=== PATIENT | female | born 1945 | race Asian ===

== ENCOUNTER 2016-10-05 16:17 | Emergency (ER) | payer MEDICARE, OTHER ==
[2016-10-05 16:58] VITALS: BP 154/55
--- NOTE | 2016-10-05 17:49 | Emergency Department Report ---
ED Headache HPI - General Chief Complaint: Head Injury Stated Complaint: HEAD PAIN Time Seen by Provider: 10/05/16 17:48 Source: patient, family Exam Limitations: no limitations - History of Present Illness Initial Comments: Patient states she is having pain to the top of her head on the left side of started Thursday. She said it started when she was gardening and tried to pull up out of the ground and she jerked forward. Denies any head injury or loss of consciousness. Denies any chest pain, nausea vomiting, shortness of breath. Denies any fever or chills. Pain is 8 out of 10 and feels achy and comes and goes. She did not take any medication. Patient has a history of diabetes and hypertension. Pressure is 154/55. Timing/Duration: waxing and waning, other (4 days) Quality: moderate, achy Head Injury Location: parietal Recent Head Trauma: occasional headaches Associated Symptoms: denies: confusion, fatigue, facial pain, fever/chills, flushing, loss of consciousness, nausea/vomiting, nasal congestion, nasal drainage, numbness in legs/feet, rash, seizures, sinus infection, stiff neck, vision changes, weakness Allergies/Adverse Reactions: Allergies No Known Allergies Allergy (Unverified 10/05/16 16:58) Home Medications: Ambulatory Orders Cephalexin [Keflex] 500 mg PO Q8HR #30 cap 10/05/16 Ibuprofen [Motrin] 600 mg PO Q8H PRN #15 tablet 10/05/16 ED Review of Systems ROS: Stated complaint: HEAD PAIN Other details as noted in HPI Comment: All other systems reviewed and negative Constitutional: denies: chills, fever Eyes: denies: eye pain, vision change ENT: congestion. denies: ear pain, throat pain, hearing loss, epistaxis Respiratory: no symptoms reported Cardiovascular: denies: chest pain, palpitations, edema, syncope Gastrointestinal: denies: nausea, vomiting Musculoskeletal: denies: back pain, arthralgia Skin: denies: rash Neurological: headache. denies: weakness, numbness, paresthesias, confusion, abnormal gait ED Past Medical Hx - Past Medical History Previous Medical History?: Yes Hx Hypertension: Yes Hx Diabetes: Yes - Surgical History Past Surgical History?: No - Family History Family history: diabetes, hypertension - Social History Smoking Status: Former Smoker Substance Use Type: None - Medications Home Medications: Home Medications Medication Instructions Recorded Confirmed Last Taken Type Cephalexin [Keflex] 500 mg PO Q8HR #30 cap 10/05/16 Unknown Rx Ibuprofen [Motrin] 600 mg PO Q8H PRN #15 tablet 10/05/16 Unknown Rx ED Physical Exam - General Limitations: No Limitations General appearance: alert, in no apparent distress - Head Head exam: Present: atraumatic, normocephalic, normal inspection - Expanded Head Exam Expanded Head exam: Absent: laceration, abrasion, contusion, hematoma, racoon eyes, cali's sign, general tenderness, tenderness of temporal artery, CSF rhinorrhea , CSF otorrhea - Eye Eye exam: Present: normal appearance, PERRL, EOMI. Absent: nystagmus, periorbital swelling, periorbital tenderness Pupils: Present: normal accommodation - ENT ENT exam: Present: normal exam, normal orophraynx, mucous membranes moist, normal external ear exam, other (bilateral nasal mucosa congested without erythema. No frontal or maxillary sinus tenderness to palpate). Absent: TM's normal bilaterally ([place] TM congested without erythema) - Neck Neck exam: Present: normal inspection. Absent: tenderness, meningismus, full ROM, lymphadenopathy - Respiratory Respiratory exam: Present: normal lung sounds bilaterally. Absent: respiratory distress, chest wall tenderness - Cardiovascular Cardiovascular Exam: Present: regular rate, normal rhythm, normal heart sounds - GI/Abdominal GI/Abdominal exam: Present: soft, normal bowel sounds. Absent: distended, tenderness, guarding, rebound, rigid - Extremities Exam Extremities exam: Present: normal inspection, full ROM, normal capillary refill. Absent: tenderness, pedal edema, joint swelling, calf tenderness - Back Exam Back exam: Present: normal inspection, full ROM. Absent: tenderness, CVA tenderness (R), CVA tenderness (L), muscle spasm, paraspinal tenderness, vertebral tenderness, rash noted - Neurological Exam Neurological exam: Present: alert, oriented X3, normal gait, reflexes normal. Absent: motor sensory deficit - Expanded Neurological Exam Expanded Neurological exam: Absent: innattentive, memory loss-remote event, memory loss- recent event, ataxia, receptive aphasia, expressive aphasia, total aphasia, tremor, protecting the airway Patient oriented to: Present: person, place, time Speech: Present: fluid speech Cranial nerves: EOM's Intact: Normal, Gag Reflex: Normal, Nystagmus: Normal, Facial Sensation: Normal Cerebellar function: Romberg: Normal Upper motor neuron: Pronator Drift: Normal, Sensory Extinction: Normal Sensory exam: Upper Extremity Light Touch: Normal, Upper Extremity Temperature: Normal, UE 2 Point Discrimination: Normal, Lower Extremity Light Touch: Normal, Lower Extremity Temperature: Normal, LE 2 Point Discrimination: Normal Motor strength exam: RUE: 5, LUE: 5, RLE: 5, LLE: 5 DTR: bicep (R): 2+, bicep (L): 2+, tricep (R): 2+, tricep (L): 2+, knee (R): 2+ , knee (L): 2+, ankle (R): 2+, ankle (L): 2+ Best Eye Response (Mariel): (4) open spontaneously Best Motor Response ([place]): (6) obeys commands Mariel Total: 10 - Psychiatric Psychiatric exam: Present: normal affect, normal mood - Skin Skin exam: Present: warm, dry, intact, normal color. Absent: rash ED Course Vital Signs 10/05/16 16:51 Temperature 98.8 F Pulse Rate 51 L Respiratory 20 Rate Blood Pressure 154/55 O2 Sat by Pulse 100 Oximetry - Reevaluation(s) Reevaluation #1: 10/05/16 19:31 had uneventful ED stay she did not want anything for pain in the emergency room. ED Medical Decision Making - Radiology Data Radiology results: report reviewed CT scan of the head without contrast reveals no acute intracranial pathology seen at this time. Chronic sinusitis and acute and chronic left mastoiditis. Patient says she has chronic problems with her left ear and she was supposed to have surgery but she decided not to. She is nontender to palpate to left mastoid bone - Medical Decision Making ED course:I Discussed with a CT scan. Patient says that she has sinusitis versus inflammation of her sinuses and acute on chronic left mastoiditis. She saw a specialist in the past regarding left EAR Problems that they wanted to have surgery and she decided not to. She refused pain medication in emergency room. Patient is neurologically intact. She has no tenderness to palpate to left mastoid bone. Patient is afebrile. Bilateral TMs congested without any erythema. Critical care attestation.: If time is entered above; I have spent that time in minutes in the direct care of this critically ill patient, excluding procedure time. ED Disposition Clinical Impression: Chronic mastoiditis of left side Sinusitis Qualifiers: Sinusitis location: maxillary Chronicity: unspecified Qualified Code(s): J32.0 - Chronic maxillary sinusitis Headache Qualifiers: Headache type: unspecified Headache chronicity pattern: acute headache Intractability: not intractable Qualified Code(s): R51 - Headache Disposition: DISCHARGED TO HOME OR SELFCARE Is pt being admited?: No Does the pt Need Aspirin: No Condition: Stable Instructions: Acute Headache (ED), Sinusitis (ED) Additional Instructions: . Follow up with your EAR NOSE and throat doctor regarding acute on chronic mastoiditis MASTOIDITIS The mastoid process is an inferior extension of the petrous temporal bone of the skull and provides a structural function as an anchor point for the large muscles of the neck. It contains multiple air cells that develop from a single main cavity (the antrum), after the age of about 2. In cross-section, it has a vacuolated or honeycomb appearance. The tympanic cavity of the middle ear is in communication with the mastoid antrum via a small canal that runs through the petrous temporal bone. The mastoid air cells are related superiorly to the middle cranial fossa and posteriorly to the posterior cranial fossa. This means that suppuration in the mastoid may, rarely, spread to cause meningitis or a cerebral abscess. Other surrounding structures include the facial nerve canal, the sigmoid sinus and the lateral sinus. Mastoiditis occurs when suppurative infection extends from a middle ear affected by otitis media to the mastoid air cells. The infective process causes inflammation of the mastoid and surrounding tissues and may lead to bony destruction. Classification Classic, or acute, mastoiditis is a rare complication of acute otitis media (AOM ). Acute mastoiditis is defined as an acute inflammation of the mastoid with colliquation of the air-filled mastoidal bone.[1] Chronic, latent, or masked, mastoiditis presents in a chronic, or subclinical, fashion. It is usually associated with chronic suppurative otitis media or cholesteatoma. NEW - log your activity Notes Add notes to any clinical page and create a reflective diary Track Automatically track and log every page you have viewed Print Print and export a summary to use in your appraisal Click to find out more Spectrum of otitis media[2] Otitis media (OM) is an umbrella term for a group of complex infective and inflammatory conditions affecting the middle ear. All OM involves pathology of the middle ear and middle ear mucosa. OM is a leading cause of healthcare visits worldwide and its complications are important causes of preventable hearing loss, particularly in the developing world.[3] There are various subtypes of OM. These include AOM, otitis media with effusion (OME), chronic suppurative otitis media (CSOM), mastoiditis and cholesteatoma. They are generally described as discrete diseases but in reality there is a great degree of overlap between the different types. OM can be seen as a continuum/spectrum of diseases: AOM is acute inflammation of the middle ear and may be caused by bacteria or viruses. A subtype of AOM is acute suppurative OM, characterised by the presence of pus in the middle ear. In around 5% the eardrum perforates. OME is a chronic inflammatory condition without acute inflammation, which often follows a slowly resolving AOM. There is an effusion of glue-like fluid behind an intact tympanic membrane in the absence of signs and symptoms of acute inflammation. CSOM is long-standing suppurative middle ear inflammation, usually with a persistently perforated tympanic membrane. Mastoiditis is acute inflammation of the mastoid periosteum and air cells occurring when AOM infection spreads out from the middle ear. Cholesteatoma occurs when keratinising squamous epithelium (skin) is present in the middle ear as a result of tympanic membrane retraction. Epidemiology Mastoiditis in acute or chronic form is now quite rare. The incidence in developed countries is 1.2-6.1 per 100,000.[4] There is a rising incidence, however, which is connected to restrained antibiotic therapy of AOM, inadequate dosing, choice of antibiotics and increasing resistance of bacteria.[1] As serious complications are rare, guidance is that the routine use of antibiotics in AOM is not thought to be justified by the potential reduction in risk of these complications. See separate article Acute Otitis Media in Children. [facility] Petrositis More related content Risk factors Mastoiditis is more common in young children, with peak incidence at age 6-13 months. Patients with immunocompromise may be more prone to mastoiditis. Children or adults with intellectual impairment or communication difficulties are thought to be susceptible to the condition, possibly as a result of not being able to communicate their symptoms. Pre-existence of cholesteatoma is a risk factor for subsequent mastoiditis. Infecting organisms[1] Streptococcus pneumoniae (most frequently isolated). Streptococcus pyogenes. Staphylococcus spp. Haemophilus influenzae (this is quite rare). Pseudomonas aeruginosa (becoming increasingly common). Moraxella catarrhalis. Other Gram-negative organisms (occur more frequently in chronic form). Mycobacteria (rare). Aspergillus and other fungi (rare). Presentation Early diagnosis and prompt treatment are important to reduce the risk of complications.[5] Acute (classic) mastoiditis History of acute or recurrent episodes of otitis media. Intense otalgia and pain behind the ear. Fever. Infants may present with irritability, intractable crying and feeding problems. Swelling, redness or a boggy, tender mass behind the ear. The external ear may protrude forwards; fluctuance can sometimes be demonstrated behind the ear (examine from behind). Ear discharge may be present and the eardrum may be perforated. Tympanic membrane bulges and is erythematous. The patient is unwell. Chronic mastoiditis Presents in a subtle or subclinical fashion after an episode of AOM or with history of chronic suppurative otitis media. Recurrent bouts of otalgia and retro-aural pain. Recurrent headache. Episodes of fever. Infants may present with irritability, intractable crying and feeding problems. Tympanic membrane may appear infected or may be normal. May be no external evidence of tamiko-mastoid inflammation. Prescriptions: Cephalexin [Keflex] 500 mg PO Q8HR #30 cap Ibuprofen [Motrin] 600 mg PO Q8H PRN #15 tablet PRN Reason: Pain Referrals: DAMIAN RAMOS MD [Staff Physician] - 2-3 Days PRIMARY MANUEL, [Primary Care Provider] - 2-3 Days ANDER GUTIERREZ MD [Staff Physician] - 2-3 Days Forms: Accompanied Note, Work/School Release Form(ED)
--- NOTE | 2016-10-05 18:58 | Cat Scan Report ---
FINAL REPORT PROCEDURE: CT HEAD/BRAIN WO CON TECHNIQUE: Computerized tomography of the head was performed without contrast material. HISTORY: headache COMPARISON: No prior studies are available for comparison. FINDINGS: Skull and scalp/paranasal sinuses: Mucosal thickening maxillary sinuses right greater than left with apparent maxillary sinus ostial wall thickening may reflect osteitis as a manifestations of chronic sinusitis. Chronic soft tissue calcifications seen at the bridge of the nose. Severe sclerotic change left mastoid with fluid present consistent with acute on chronic left otomastoiditis. Ventricles and subarachnoid spaces: Normal. Cerebrum: No evidence of hemorrhage, acute infarction or mass . Cerebellum and brainstem: No evidence of hemorrhage, acute infarction or mass. Vasculature: Normal. Comments: Mild diffuse atrophy with chronic hygromas collection frontal lobes. Minimal central lacunar disease minimal microischemic change suspected.. IMPRESSION: Chronic sinusitis and acute on chronic left mastoiditis No acute intracranial pathology seen at this time
== END 2016-10-05 20:02 | disposition home or self-care (01) ==
LOC: ED 16:17
DX: H70.12 Chronic mastoiditis, left ear (principal); J32.0 Chronic maxillary sinusitis; R51 Headache; I10 Essential (primary) hypertension; E11.9 Type 2 diabetes mellitus without complications; Z87.891 Personal history of nicotine dependence
CPT/HCPCS: 70450

== ENCOUNTER 2016-10-19 18:12 | Emergency (ER) | payer MEDICARE, OTHER ==
[2016-10-19 18:34] VITALS: BP 138/49
== END 2016-10-19 21:55 | disposition left against medical advice (07) ==
LOC: ED 18:12
DX: H92.02 Otalgia, left ear (principal); Z53.21 Procedure and treatment not carried out due to patient leaving prior to being seen by health care provider

== ENCOUNTER 2021-03-09 19:32 | Emergency (ER) | payer MEDICARE, OTHER ==
[2021-03-09 22:10] VITALS: BP 148/61
== END 2021-03-09 22:11 ==
LOC: ED 19:32
DX: T78.40XA Allergy, unspecified, initial encounter (principal); Z53.21 Procedure and treatment not carried out due to patient leaving prior to being seen by health care provider; X58.XXXA Exposure to other specified factors, initial encounter